=== PATIENT | female | born 1950 | race Caucasian/White ===

== ENCOUNTER 2018-04-19 17:13 | Emergency (ER) | payer MEDICARE, OTHER ==
[~2018-04-19] VITALS: Ht 154.9 cm; Wt 75.0 kg
[2018-04-19] MEDS ORDERED: ASPIRIN 81 MG CHEW TABLET PO ONE (17:45)
[2018-04-19 17:56] LABS: BASO % 0.4 % (0.0-1.0); EOS # 0.1 10^3/uL (0.0-0.50); EOS % 1.2 % (0.0-3.0); HEMATOCRIT 38.8 % (36.0-47.0); HEMOGLOBIN 13.1 g/dl (12.0-15.5); LYMPH # 4.4 10^3/uL (1.5-4.5); LYMPH % 57.2 % (24.0-44.0); MEAN CORPUSCULAR HEMOGLOBIN 28.9 pg (27.0-33.0); MEAN CORPUSCULAR HGB CONC 33.8 g/dl (32.0-36.5); MEAN CORPUSCULAR VOLUME 85.5 fl (80.0-96.0); MONO # 0.4 10^3/uL (0.0-0.8); MONO % 4.5 % (0.0-5.0); NEUTROPHILS # 2.8 10^3/uL (1.8-7.7); NEUTROPHILS % 36.6 % (36.0-66.0); PLATELET COUNT, AUTOMATED 267 10^3/uL (150-450); RED BLOOD COUNT 4.54 10^6/uL (4.00-5.40); WHITE BLOOD COUNT 7.8 10^3/uL (4.0-10.0)
[2018-04-19 18:16] LABS: ALBUMIN 3.9 GM/DL (3.2-5.2); ALT/SGPT 30 U/L (12-78); BILIRUBIN,DIRECT < 0.1 MG/DL (0.0-0.2); BILIRUBIN,TOTAL 0.2 MG/DL (0.2-1.0); BLOOD UREA NITROGEN 15 MG/DL (7-18); CALCIUM LEVEL 8.9 MG/DL (8.8-10.2); CARBON DIOXIDE LEVEL 25 MEQ/L (21-32); CHLORIDE LEVEL 105 MEQ/L (98-107); CPK CREATINE PHOSPHOKINASE 176 U/L (26-192); CREATININE FOR GFR 0.73 MG/DL (0.55-1.30); GLOMERULAR FILTRATION RATE > 60.0 (>45); GLUCOSE, FASTING 146 MG/DL (70-100); LIPASE 252 U/L (73-393); MB/CK RELATIVE INDEX 0.97 (< OR =4); POTASSIUM SERUM 4.1 MEQ/L (3.5-5.1); SODIUM LEVEL 141 MEQ/L (136-145); TOTAL PROTEIN 7.3 GM/DL (6.4-8.2); TROPONIN I < 0.02 NG/ML (< 0.10)
[2018-04-19 20:30] VITALS: BP 159/67
[2018-04-19 20:38] LABS: CPK CREATINE PHOSPHOKINASE 157 U/L (26-192); MB/CK RELATIVE INDEX 0.96 (< OR =4); TROPONIN I < 0.02 NG/ML (< 0.10)
[2018-04-19] MEDS ORDERED: B COTAB3 PO (21:01)
[2018-04-19] MEDS ORDERED: potassium PO (21:01)
[2018-04-19] MEDS ORDERED: VITA500C24 PO (21:01)
[2018-04-19] MEDS ORDERED: MAGN400C2 PO (21:01)
--- NOTE | 2018-04-20 10:31 | REP ---
Portable chest, 05:43 p.m., AP view, the patient upright: Comparison is 09/16/2001. 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 Lung blevins are clear. Cardiac size is normal. The theodora, mediastinum, and skeletal structures are unremarkable. Impression Negative portable chest. No interval change. Electronically Signed by Corey Raygoza MD 04/20/2018 08:49 A
--- NOTE | 2018-04-20 17:46 | ECGEPIP ---
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
--- NOTE | 2018-04-20 17:47 | ECGEPIP ---
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
== END 2018-04-19 21:01 | disposition home or self-care (01) ==
LOC: M ED 17:13
DX: R07.89 Other chest pain (principal); Z79.899 Other long term (current) drug therapy; Z88.5 Allergy status to narcotic agent

== ENCOUNTER 2018-07-22 10:56 | Emergency (ER) | payer MEDICARE, OTHER ==
[~2018-07-22] VITALS: Ht 154.9 cm; Wt 77.3 kg
[~2018-07-22 10:56] MED LIST: B COTAB3 PO; MAGN400C2 PO; VITA500C24 PO; potassium PO
[2018-07-22] MEDS ORDERED: ATOR40TA75 (11:04)
[2018-07-22] MEDS ORDERED: ASPI81TA85 PO (11:04)
[2018-07-22] MEDS ORDERED: HORMONE (11:04)
[2018-07-22] MEDS ORDERED: MORPHINE 4 MG/ML 1ML VIAL/SYRINGE (J2270) IV ONE (12:00)
[2018-07-22] MEDS ORDERED: NS 1,000 ML IV ONE (12:00)
[2018-07-22] MEDS ORDERED: ONDANSETRON 4MG/2ML VIAL (J2405) IV ONE (12:15)
[2018-07-22 12:32] LABS: BASO % 0.2 % (0.0-1.0); EOS % 0.2 % (0.0-3.0); HEMATOCRIT 43.3 % (36.0-47.0); HEMOGLOBIN 14.8 g/dl (12.0-15.5); LYMPH # 2.6 10^3/uL (1.5-4.5); MEAN CORPUSCULAR HEMOGLOBIN 29.6 pg (27.0-33.0); MEAN CORPUSCULAR HGB CONC 34.2 g/dl (32.0-36.5); MEAN CORPUSCULAR VOLUME 86.6 fl (80.0-96.0); MONO # 0.8 10^3/uL (0.0-0.8); MONO % 6.3 % (0.0-5.0); NEUTROPHILS # 8.9 10^3/uL (1.8-7.7); NEUTROPHILS % 71.8 % (36.0-66.0); PLATELET COUNT, AUTOMATED 236 10^3/uL (150-450); WHITE BLOOD COUNT 12.4 10^3/uL (4.0-10.0)
[2018-07-22 12:49] LABS: ALT/SGPT 27 U/L (12-78); BLOOD UREA NITROGEN 9 MG/DL (7-18); CALCIUM LEVEL 9.1 MG/DL (8.8-10.2); CARBON DIOXIDE LEVEL 26 MEQ/L (21-32); CHLORIDE LEVEL 103 MEQ/L (98-107); GLOMERULAR FILTRATION RATE > 60.0 (>45); GLUCOSE, FASTING 113 MG/DL (70-100); SODIUM LEVEL 139 MEQ/L (136-145)
[2018-07-22 12:50] LABS: BILIRUBIN,DIRECT 0.2 MG/DL (0.0-0.2); BILIRUBIN,TOTAL 0.9 MG/DL (0.2-1.0); LIPASE 122 U/L (73-393); TOTAL PROTEIN 7.8 GM/DL (6.4-8.2)
[2018-07-22] MEDS ORDERED: ISOVUE-370 76% 100ML VIAL (Q9967) As Ordered ONE (13:23)
[2018-07-22] MEDS ORDERED: CIPROFLOXACIN 400 MG in APPROPRIATE DILUENT 1 EA IV ONE (14:00)
[2018-07-22] MEDS ORDERED: metroNIDAZOLE (FLAGYL) 500 MG TAB PO ONE (14:00)
--- NOTE | 2018-07-22 14:02 | REP ---
Clinical: Lower abdominal pain and leukocytosis. Technique: Axial contrast enhanced images from the lung bases to the pubic symphysis using 100 ml Isovue 370 intravenous contrast material with coronal and sagittal re-formations. Findings: Mucosal thickening to the midsigmoid colon is appreciated with surrounding inflammatory changes and few central diverticula compatible with acute diverticulitis. No associated bowel obstruction, free air to suggest perforation, significant ascites or drainable collection/abscess. Remainder of the small and large bowel is grossly unremarkable. Diffuse fatty infiltration to the liver noted without focal hepatic lesion. Spleen, pancreas, bilateral adrenal glands and kidneys are normal. Cholelithiasis noted without evidence for acute cholecystitis. Pelvis demonstrates normal bladder and age-appropriate uterus/adnexa. No significant pelvic free fluid. Abdominal aorta without aneurysm or dissection. Musculoskeletal structures without focal osseous abnormality. Lung bases are clear. Impression: 1. Acute sigmoid diverticulitis. No associated bowel perforation, ascites, drainable collection or abscess. 2. Cholelithiasis. Electronically Signed by Joni North MD 07/22/2018 01:53 P
[2018-07-22] MEDS ORDERED: CIPR-249 PO (14:08)
[2018-07-22] MEDS ORDERED: FLAG500T PO (14:08)
[2018-07-22] MEDS ORDERED: NORC1TAB7 PO (14:08)
[2018-07-22 15:33] VITALS: BP 162/71
== END 2018-07-22 15:33 | disposition home or self-care (01) ==
LOC: M ED 10:56
DX: K57.32 Diverticulitis of large intestine without perforation or abscess without bleeding (principal); E78.9 Disorder of lipoprotein metabolism, unspecified; Z79.899 Other long term (current) drug therapy; Z79.82 Long term (current) use of aspirin; Z88.5 Allergy status to narcotic agent
CPT/HCPCS: 74177; 80048; 80076; 81001; 83690; 85025; 96374; 96375; 99284; J0744; J2270; J2405; Q9967

== ENCOUNTER 2018-12-03 12:44 | Day surgery (SDC) | payer MEDICARE, OTHER ==
[~2018-12-03] VITALS: Ht 154.9 cm; Wt 73.9 kg
[~2018-12-03 12:44] MED LIST changes: +ASPI81TA85 PO; +ATOR40TA75; +CIPR-249 PO; +ESTRTAB11 PO; +EVEN500C3 PO; +FLAG500T PO; +GING1CAP PO; +HORMONE; +NORC1TAB7 PO; +NS 1,000 ML IV ONE
[2018-12-03] MEDS ORDERED: LIDOCAINE 2% INJ 100 MG/5 ML SDV (FOR ANES.) As Ordered ONE (13:29)
[2018-12-03] MEDS ORDERED: PROPOFOL 200 MG/20 ML VIAL As Ordered ONE ×2 (13:29→14:21)
--- NOTE | 2018-12-03 14:26 | ROOR ---
Patient Name: Colleen Lockett Procedure Date: 12/03/2018 1:54 PM Date of : 1950 Age: 68 Room: [facility] Gender: Female Note Status: Finalized Procedure: Total Colonoscopy to Cecum + ileoscopy + Cold Snare Polypectomy Indications: Screening for colorectal malignant neoplasm Providers: Siva Toussaint MD Referring MD: Emigdio Westbrook MD Requesting Provider: Medicines: Monitored Anesthesia Care Complications: No immediate complications. Procedure: Pre-Anesthesia Assessment: - The heart rate, respiratory rate, oxygen saturations, blood pressure, adequacy of pulmonary ventilation, and response to care were monitored throughout the procedure. The Colonoscope was introduced through the anus and advanced to the cecum, identified by appendiceal orifice and ileocecal valve. The colonoscopy was performed without difficulty. The patient tolerated the procedure well. The quality of the bowel preparation was excellent. Findings: The perianal and digital rectal examinations were normal. Non-bleeding internal hemorrhoids were found during retroflexion. The hemorrhoids were small and Grade I (internal hemorrhoids that do not prolapse). Multiple small and large-mouthed diverticula were found in the recto-sigmoid colon, sigmoid colon and descending colon. A small polyp was found in the hepatic flexure. The polyp was sessile. The polyp was removed with a cold snare. Resection and retrieval were complete. The exam was otherwise without abnormality on direct and retroflexion views. The terminal ileum appeared normal. Impression: - Non-bleeding internal hemorrhoids. - Diverticulosis in the recto-sigmoid colon, in the sigmoid colon and in the descending colon. - One small polyp at the hepatic flexure, removed with a cold snare. Resected and retrieved. - The examination was otherwise normal on direct and retroflexion views. - The examined portion of the ileum was normal. - The exam was otherwise normal to the cecum. Recommendation: - Patient has a contact number available for emergencies. The signs and symptoms of potential delayed complications were discussed with the patient. Return to normal activities tomorrow. Written discharge instructions were provided to the patient. - High fiber diet. - Discharge patient to home. - Continue present medications. - Await pathology results. - Telephone GI clinic for pathology results in 1 week. - Return to referring physician. - Repeat colonoscopy for surveillance based on pathology results. - Return to referring physician. - The findings and recommendations were discussed with the patient's family. Siva Toussaint MD Siva Toussaint MD 12/03/2018 2:25:34 PM Electronically signed by Siva Toussaint MD Number of Addenda: 0 Note Initiated On: 12/03/2018 1:54 PM Estimated Blood Loss: Estimated blood loss: none.
[2018-12-03 14:40] VITALS: BP 166/77
== END 2018-12-03 14:57 | disposition home or self-care (01) ==
LOC: M OPP 12:44
PROVIDERS: ATTEND Internal Medicine Gastroenterology
DX: Z12.11 Encounter for screening for malignant neoplasm of colon (principal); K64.0 First degree hemorrhoids; K57.30 Diverticulosis of large intestine without perforation or abscess without bleeding; D12.3 Benign neoplasm of transverse colon; K57.32 Diverticulitis of large intestine without perforation or abscess without bleeding; K59.00 Constipation, unspecified; K21.9 Gastro-esophageal reflux disease without esophagitis; Z78.0 Asymptomatic menopausal state; Z88.5 Allergy status to narcotic agent; Z79.82 Long term (current) use of aspirin

== ENCOUNTER → 2018-12-31 | Outpatient (REF) | payer MEDICARE, BC ==
[~2018-12-31] MED LIST changes: -NS 1,000 ML IV ONE
== END ==
LOC: M SFHCPLAZ 17:22
PROVIDERS: ATTEND Dermatology
DX: D49.2 Neoplasm of unspecified behavior of bone, soft tissue, and skin (principal)

== ENCOUNTER → 2019-01-07 | Outpatient (REF) | payer MEDICARE, OTHER | LOC: M LAB REF 08:53 | PROVIDERS: ATTEND Dermatology | DX: L57.0 Actinic keratosis (principal) ==

== ENCOUNTER 2020-11-06 08:22 | Emergency (ER) | payer MEDICARE, OTHER ==
[~2020-11-06] VITALS: Ht 154.9 cm; Wt 78.4 kg
[~2020-11-06 08:22] MED LIST changes: -ASPI81TA85 PO; +ASPI81TA86 PO
[2020-11-06] MEDS ORDERED: ZINC1TAB2 PO (08:29)
[2020-11-06] MEDS ORDERED: ACET-907 PO (08:29)
[2020-11-06] MEDS ORDERED: NAPR-849 PO (08:29)
[2020-11-06] MEDS ORDERED: SERT25TA85 PO (08:29)
[2020-11-06] MEDS ORDERED: LIDOCAINE 5% (LIDODERM) PATCH TD ONE (10:30)
[2020-11-06] MEDS ORDERED: KETOROLAC 60MG 2ML VIAL IM ONE (10:30)
--- NOTE | 2020-11-06 11:47 | REP ---
INDICATION: back pain, no STACIE, recent breast CA dx. COMPARISON: CT 07/22/2018. TECHNIQUE: Axial CT with sagittal and coronal reconstruction images. FINDINGS: There is no compression fracture. No bone lesion is seen. There is mild diffuse spurring. There is mild diffuse disc space narrowing and subchondral sclerosis. Scattered degenerative changes are seen at the posterior facet joints. There is a small hiatal hernia. There are gallstones in the gallbladder. There is a stable, benign 7 mm nodule in the right lower lobe. IMPRESSION: No fracture or suspicious bone lesion. Diffuse degenerative changes. <Electronically signed by Corey Wilcox > 11/06/20 1141
--- NOTE | 2020-11-06 11:48 | REP ---
INDICATION: SOB, recent breast CA dx COMPARISON: 04/19/2018. TECHNIQUE: PA/Lateral FINDINGS: Lungs: Clear, no infiltrate. Heart: Normal in size. Mediastinum: Mediastinal silhouette unremarkable. There is mild elevation of the right hemidiaphragm. Pleural angles: Unremarkable.. Bones and soft tissues: There are mild degenerative changes of the spine. IMPRESSION: No acute pulmonary disease. <Electronically signed by Corey Wilcox > 11/06/20 1140
[2020-11-06 13:57] LABS: BASO % 0.3 % (0.0-1.0); EOS # 0.1 10^3/uL (0.0-0.5); EOS % 1.3 % (0.0-3.0); HEMATOCRIT 42.4 % (36.0-47.0); HEMOGLOBIN 14.2 g/dl (12.0-15.5); LYMPH # 3.1 10^3/uL (1.5-5.0); LYMPH % 49.4 % (24.0-44.0); MEAN CORPUSCULAR HGB CONC 33.5 g/dl (32.0-36.5); MEAN CORPUSCULAR VOLUME 89.5 fl (80.0-96.0); MONO # 0.3 10^3/uL (0.0-0.8); MONO % 5.1 % (2.0-8.0); NEUTROPHILS # 2.8 10^3/uL (1.5-8.5); NEUTROPHILS % 43.6 % (36.0-66.0); PLATELET COUNT, AUTOMATED 285 10^3/uL (150-450); RED BLOOD COUNT 4.74 10^6/uL (4.00-5.40); WHITE BLOOD COUNT 6.3 10^3/uL (4.0-10.0)
[2020-11-06] MEDS ORDERED: cloNIDine 0.1MG TABLET PO ONE (14:00)
[2020-11-06 14:32] LABS: CK-MB VALUE MASS 1.8 NG/ML (<3.6); CPK CREATINE PHOSPHOKINASE 227 U/L (26-192); FREE THYROXINE INDEX 3.1 % (1.3-4.8); MB/CK RELATIVE INDEX 0.79 (< OR =4); T UPTAKE 30 % (30-39); THYROXINE (T4) 10.4 UG/DL (4.5-12.0); TROPONIN I < 0.02 NG/ML (< 0.10)
[2020-11-06 14:48] VITALS: BP 185/84
[2020-11-06] MEDS ORDERED: METH-1165 PO (14:54)
[2020-11-06] MEDS ORDERED: ASPE4PAD TOP (14:54)
--- NOTE | 2020-11-06 20:14 | ECGEPIP ---
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
[2020-11-06] MEDS ORDERED: **NOTE PATIENT COMMENT** MISC XX ONE (22:30)
== END 2020-11-06 15:19 | disposition home or self-care (01) ==
LOC: M ED 08:22
DX: I10 Essential (primary) hypertension (principal); R79.9 Abnormal finding of blood chemistry, unspecified; M54.6 Pain in thoracic spine; C50.919 Malignant neoplasm of unspecified site of unspecified female breast; Z88.5 Allergy status to narcotic agent; Z79.899 Other long term (current) drug therapy; Z79.82 Long term (current) use of aspirin
CPT/HCPCS: 36415; 71046; 72128; 80047; 82550; 82553; 84436; 84443; 84479; 84484; 85025; 93005; 96372; 99284; J1885

== ENCOUNTER → 2021-01-08 | Outpatient (REF) | payer MEDICARE, OTHER ==
[~2021-01-08] MED LIST changes: +ACET-907 PO; +ASPE4PAD TOP; +METH-1165 PO; +NAPR-849 PO; +SERT25TA85 PO; +ZINC1TAB2 PO
== END ==
LOC: M WUC 18:43
PROVIDERS: ATTEND Physician Assistant
DX: R30.0 Dysuria (principal)

== ENCOUNTER → 2021-05-26 | Outpatient (CLI) | payer MEDICARE, OTHER | LOC: M WUC 11:27 | PROVIDERS: ATTEND Family Medicine | DX: M85.88 Other specified disorders of bone density and structure, other site (principal); M51.9 Unspecified thoracic, thoracolumbar and lumbosacral intervertebral disc disorder ==

== ENCOUNTER 2021-09-13 10:21 | Emergency (ER) | payer MEDICARE, OTHER ==
[~2021-09-13] VITALS: Ht 154.9 cm; Wt 70.5 kg
[2021-09-13 11:18] LABS: BASO % 0.4 % (0.0-1.0); EOS # 0.1 10^3/uL (0.0-0.5); EOS % 1.1 % (0.0-3.0); HEMATOCRIT 43.7 % (36.0-47.0); LYMPH # 2.9 10^3/uL (1.5-5.0); LYMPH % 53.4 % (24.0-44.0); MEAN CORPUSCULAR HEMOGLOBIN 30.1 pg (27.0-33.0); MEAN CORPUSCULAR HGB CONC 34.3 g/dl (32.0-36.5); MEAN CORPUSCULAR VOLUME 87.6 fl (80.0-96.0); MONO # 0.3 10^3/uL (0.0-0.8); MONO % 6.3 % (2.0-8.0); NEUTROPHILS # 2.1 10^3/uL (1.5-8.5); NEUTROPHILS % 38.4 % (36.0-66.0); PLATELET COUNT, AUTOMATED 212 10^3/uL (150-450); RED BLOOD COUNT 4.99 10^6/uL (4.00-5.40); WHITE BLOOD COUNT 5.4 10^3/uL (4.0-10.0)
[2021-09-13 11:41] LABS: CK-MB VALUE MASS 2.6 NG/ML (<3.6); MB/CK RELATIVE INDEX 1.38 (< OR =4)
[2021-09-13 12:44] LABS: ALBUMIN 4.1 GM/DL (3.2-5.2); ALT/SGPT 24 U/L (12-78); BILIRUBIN,DIRECT < 0.1 MG/DL (0.0-0.2); BILIRUBIN,TOTAL 0.5 MG/DL (0.2-1.0); BLOOD UREA NITROGEN 12 MG/DL (7-18); CALCIUM LEVEL 9.7 MG/DL (8.8-10.2); CARBON DIOXIDE LEVEL 24 MEQ/L (21-32); CHLORIDE LEVEL 111 MEQ/L (98-107); CREATININE FOR GFR 0.64 MG/DL (0.55-1.30); GLOMERULAR FILTRATION RATE > 60.0 (>39); GLUCOSE, FASTING 104 MG/DL (70-100); LIPASE 129 U/L (73-393); POTASSIUM SERUM 4.1 MEQ/L (3.5-5.1); SODIUM LEVEL 141 MEQ/L (136-145); TOTAL PROTEIN 7.6 GM/DL (6.4-8.2)
[2021-09-13 12:46] LABS: CK-MB VALUE MASS 2.5 NG/ML (<3.6); MB/CK RELATIVE INDEX 1.3 (< OR =4)
[2021-09-13] MEDS ORDERED: ISOVUE-370 76% 100ML VIAL As Ordered ONE (13:34)
[2021-09-13 15:05] LABS: CK-MB VALUE MASS 2.2 NG/ML (<3.6); MB/CK RELATIVE INDEX 1.26 (< OR =4)
[2021-09-13 15:40] VITALS: BP 168/84
== END 2021-09-13 17:10 | disposition home or self-care (01) ==
LOC: M ED 10:21
DX: R07.9 Chest pain, unspecified (principal); R03.0 Elevated blood-pressure reading, without diagnosis of hypertension; R06.02 Shortness of breath; Z88.5 Allergy status to narcotic agent; Z79.899 Other long term (current) drug therapy; Z79.82 Long term (current) use of aspirin
CPT/HCPCS: 36415; 71045; 71275; 80048; 80076; 82550; 82553; 83690; 84484; 85025; 93005; 93041; 94760; 99285; Q9967

== ENCOUNTER 2021-09-29 21:21 | Emergency (ER) | payer MEDICARE ==
[~2021-09-29] VITALS: Ht 154.9 cm; Wt 69.8 kg
[2021-09-29 21:53] LABS: BASO % 0.3 % (0.0-1.0); EOS # 0.1 10^3/uL (0.0-0.5); EOS % 1.5 % (0.0-3.0); HEMATOCRIT 41.2 % (36.0-47.0); LYMPH # 3.4 10^3/uL (1.5-5.0); LYMPH % 55.6 % (24.0-44.0); MEAN CORPUSCULAR HEMOGLOBIN 29.9 pg (27.0-33.0); MEAN CORPUSCULAR VOLUME 87.8 fl (80.0-96.0); MONO # 0.3 10^3/uL (0.0-0.8); MONO % 4.6 % (2.0-8.0); NEUTROPHILS # 2.3 10^3/uL (1.5-8.5); NEUTROPHILS % 37.8 % (36.0-66.0); PLATELET COUNT, AUTOMATED 221 10^3/uL (150-450); RED BLOOD COUNT 4.69 10^6/uL (4.00-5.40); WHITE BLOOD COUNT 6.1 10^3/uL (4.0-10.0)
[2021-09-29] MEDS ORDERED: ISOVUE-370 76% 100ML VIAL As Ordered ONE (22:02)
[2021-09-29 22:05] LABS: INR 0.9; PROTHROMBIN TIME 12.5 SECONDS (12.7-14.5)
[2021-09-29 22:10] LABS: PARTIAL THROMBOPLASTIN TIME 26.8 SECONDS (25.9-37.0)
[2021-09-29 22:25] LABS: CK-MB VALUE MASS 1.4 NG/ML (<3.6); MB/CK RELATIVE INDEX 0.85 (< OR =4)
[2021-09-29 22:33] LABS: ALBUMIN 3.6 GM/DL (3.2-5.2); ALT/SGPT 26 U/L (12-78); BILIRUBIN,DIRECT < 0.1 MG/DL (0.0-0.2); BILIRUBIN,TOTAL 0.2 MG/DL (0.2-1.0); BLOOD UREA NITROGEN 20 MG/DL (7-18); CALCIUM LEVEL 9.1 MG/DL (8.8-10.2); CARBON DIOXIDE LEVEL 24 MEQ/L (21-32); CHLORIDE LEVEL 108 MEQ/L (98-107); CREATININE FOR GFR 0.64 MG/DL (0.55-1.30); FREE T4 0.81 NG/DL (0.76-1.46); GLOMERULAR FILTRATION RATE > 60.0 (>39); GLUCOSE, FASTING 175 MG/DL (70-100); LIPASE 174 U/L (73-393); NT-PRO BNP 17 PG/ML (<125); POTASSIUM SERUM 3.7 MEQ/L (3.5-5.1); SODIUM LEVEL 140 MEQ/L (136-145); TOTAL PROTEIN 7.4 GM/DL (6.4-8.2)
[2021-09-29 23:45] LABS: CK-MB VALUE MASS 1.6 NG/ML (<3.6); MB/CK RELATIVE INDEX 1.03 (< OR =4)
[2021-09-29 23:55] VITALS: BP 180/94
[2021-09-29] MEDS ORDERED: HEPARIN DRIP 25,000 UNITS in IV 1 EA IV SCH (23:55)
[2021-09-29] MEDS ORDERED: HEPARIN SOD (PORCINE) 5000UNITS/ML 1ML VIAL/SYRINGE IV ONE (23:55)
[2021-09-29] MEDS ORDERED: CARVedilol 12.5 MG TAB PO ONE (23:55)
[2021-09-30 00:29] VITALS: BP 196/88
== END 2021-09-30 00:29 | disposition short-term general hospital (02) ==
LOC: EDBD 21:21 → M ED 21:21
DX: I21.4 Non-ST elevation (NSTEMI) myocardial infarction (principal); E78.5 Hyperlipidemia, unspecified; Z85.3 Personal history of malignant neoplasm of breast; Z90.13 Acquired absence of bilateral breasts and nipples; K80.20 Calculus of gallbladder without cholecystitis without obstruction; K44.9 Diaphragmatic hernia without obstruction or gangrene; Z79.82 Long term (current) use of aspirin; Z88.5 Allergy status to narcotic agent
CPT/HCPCS: 71045; 71275; 80048; 80076; 82550; 82553; 83690; 83880; 84439; 84443; 84484; 85025; 85610; 85730; 87486; 87581; 87633; 87798; 93005; 93041; 94760; 96374; 99291; J1644; Q9967

== ENCOUNTER 2024-02-25 11:19 | Inpatient (IN) | payer MEDICARE ==
[~2024-02-25] VITALS: Ht 154.9 cm; Wt 72.0 kg
[~2024-02-25 11:19] MED LIST changes: -EVEN500C3 PO; +EVEN500C7 PO
[2024-02-25] MEDS: ACETAMINOPHEN 500 MG TAB PO ONE (11:55)
[2024-02-25 12:48] LABS: BASO % 0.2 % (0.0-1.0); HEMATOCRIT 33.8 % (36.0-47.0); HEMOGLOBIN 11.9 g/dl (12.0-15.5); LYMPH # 1.6 10^3/uL (1.5-5.0); LYMPH % 18.7 % (24.0-44.0); MEAN CORPUSCULAR HEMOGLOBIN 29.7 pg (27.0-33.0); MEAN CORPUSCULAR HGB CONC 35.2 g/dl (32.0-36.5); MEAN CORPUSCULAR VOLUME 84.3 fl (80.0-96.0); MONO # 0.9 10^3/uL (0.0-0.8); MONO % 10.4 % (2.0-8.0); NEUTROPHILS % 70.1 % (36.0-66.0); PLATELET COUNT, AUTOMATED 170 10^3/uL (150-450); RED BLOOD COUNT 4.01 10^6/uL (4.00-5.40); WHITE BLOOD COUNT 8.5 10^3/uL (4.0-10.0)
[2024-02-25 13:12] LABS: LIPASE 31 U/L (12-53)
[2024-02-25 13:15] LABS: ALBUMIN 3.1 G/DL (3.2-5.2); ALKALINE PHOSPHATASE 75 U/L (35-104); ALT/SGPT 50 U/L (7.0-40); AST/SGOT 79 U/L (<34); BILIRUBIN,DIRECT 0.2 MG/DL (<0.4); BILIRUBIN,TOTAL 0.6 MG/DL (0.3-1.2); BLOOD UREA NITROGEN 17 MG/DL (9-23); CALCIUM LEVEL 8.9 MG/DL (8.3-10.6); CARBON DIOXIDE LEVEL 26 MMOL/L (20-31); CHLORIDE LEVEL 98 MMOL/L (98-107); CREATININE FOR GFR 0.79 MG/DL (0.55-1.30); GLOMERULAR FILTRATION RATE > 60.0 (>39); GLUCOSE, FASTING 120 MG/DL (74-106); POTASSIUM SERUM 3.4 MMOL/L (3.5-5.1); SODIUM LEVEL 133 MMOL/L (136-145); TOTAL PROTEIN 6.7 G/DL (5.7-8.2)
[2024-02-25] MEDS: NS (Normal Saline) 0.9% 1,000 ML IV ONE (15:49)
[2024-02-25] MEDS: GASTROGRAFIN SOLUTION 30ML PO SCH (17:44)
[2024-02-25 17:49] LABS: APPEARANCE, URINE HAZY (CLEAR); BACTERIA, URINE AUTO 3+ (NEGATIVE); BILIRUBIN, URINE AUTO NEGATIVE (NEGATIVE); BLOOD, URINE BLOOD 2+ (NEGATIVE); COLOR, URINE YELLOW (YELLOW); GLUCOSE, URINE (UA) AUTO NEGATIVE (NEGATIVE); KETONE, URINE AUTO 1+ mg/dL (NEGATIVE); LEUKOCYTE ESTERASE, URINE AUTO 2+ (NEGATIVE); NITRITE, URINE AUTO POSITIVE (NEGATIVE); PROTEIN, URINE AUTO 1+ mg/dL (NEGATIVE); RBC, URINE AUTO 5 /HPF (0-3); SPECIFIC GRAVITY URINE AUTO 1.014 (1.002-1.035); SQUAMOUS EPITHELIAL CELL UR AU 1 /HPF (0-6); UROBILINOGEN, URINE AUTO 0.2 mg/dL (0.0-2.0); WBC, URINE AUTO 40 /HPF (0-3)
[2024-02-25] MEDS ORDERED: ISOVUE-370 76% 100ML VIAL As Ordered ONE (18:54)
[2024-02-25] MEDS ORDERED: ROSU10TA61 PO (20:16)
[2024-02-25] MEDS ORDERED: METO1TAB87 PO (20:16)
[2024-02-25] MEDS ORDERED: ASPI81TA26 PO (20:16)
[2024-02-25] MEDS ORDERED: SERT50TA29 PO (20:16)
[2024-02-25] MEDS ORDERED: HOME MED LIST COMPLETE! XX SCH (20:20)
[2024-02-25] MEDS: cefTRIAXone SOD 1 GM in DEXTROSE 5% (D5W) ADV/MINI-BAG 50 ML IV ONE (20:38)
[2024-02-25] MEDS: ACETAMINOPHEN *IV* 1,000 MG in IV 1 EA IV ONE (20:56)
[2024-02-25] MEDS ORDERED: MOM 30ML SUSPENSION UDC PO PRN (21:35)
[2024-02-25] MEDS ORDERED: IBUPROFEN 400MG TAB PO PRN (21:35)
[2024-02-25] MEDS ORDERED: MAALOX 30 ML SUSP *UDC PO PRN (21:35)
[2024-02-25] MEDS ORDERED: ONDANSETRON 4MG 2ML VIAL IV PRN (21:35)
[2024-02-25] MEDS: DOCUSATE SODIUM 100MG CAPSULE PO SCH (21:45)
[2024-02-25] MEDS: METOPROLOL TART 25 MG TABLET PO SCH (22:06)
[2024-02-25] MEDS: NS (Normal Saline) 0.9% 1,000 ML IV SCH (22:06)
[2024-02-25] MEDS: PANTOPRAZOLE 40MG VIAL IV ONE (22:06)
[2024-02-25 22:37] VITALS: BP 128/58; TEMP 99.5; O2SAT 94
[2024-02-26] MEDS ORDERED: POTASSIUM CHLORIDE 10MEQ SR TABLET PO ONE (00:05)
[2024-02-26] MEDS: POTASSIUM CHLORIDE 10MEQ SR TABLET PO ONE (00:11)
[2024-02-26 03:48] VITALS: BP 145/64; TEMP 97.7; O2SAT 94
[2024-02-26] MEDS: ACETAMINOPHEN 325 MG TAB PO PRN (06:13)
[2024-02-26 06:14] VITALS: TEMP 102.8
[2024-02-26 07:17] LABS: HEMATOCRIT 31.9 % (36.0-47.0); HEMOGLOBIN 11.2 g/dl (12.0-15.5); MEAN CORPUSCULAR HEMOGLOBIN 30.4 pg (27.0-33.0); MEAN CORPUSCULAR HGB CONC 35.1 g/dl (32.0-36.5); MEAN CORPUSCULAR VOLUME 86.7 fl (80.0-96.0); PLATELET COUNT, AUTOMATED 174 10^3/uL (150-450); RED BLOOD COUNT 3.68 10^6/uL (4.00-5.40); WHITE BLOOD COUNT 6.8 10^3/uL (4.0-10.0)
[2024-02-26 07:43] LABS: PROCALCITONIN 0.23 ng/ml
[2024-02-26 07:44] LABS: ALBUMIN 2.6 G/DL (3.2-5.2); ALKALINE PHOSPHATASE 70 U/L (35-104); ALT/SGPT 66 U/L (7.0-40); AST/SGOT 95 U/L (<34); BILIRUBIN,TOTAL 0.4 MG/DL (0.3-1.2); BLOOD UREA NITROGEN 13 MG/DL (9-23); CALCIUM LEVEL 8.5 MG/DL (8.3-10.6); CARBON DIOXIDE LEVEL 26 MMOL/L (20-31); CHLORIDE LEVEL 105 MMOL/L (98-107); GLOMERULAR FILTRATION RATE > 60.0 (>39); GLUCOSE, FASTING 131 MG/DL (74-106); POTASSIUM SERUM 3.7 MMOL/L (3.5-5.1); SODIUM LEVEL 141 MMOL/L (136-145)
[2024-02-26] MEDS: ROSUVASTATIN 10 MG TAB (CRESTOR) PO SCH (08:54)
[2024-02-26] MEDS: ASPIRIN 81MG ENTERIC TABLET PO SCH (08:54)
[2024-02-26] MEDS: HEPARIN SOD (PORCINE) 5000UNITS/ML 1ML VIAL/SYRINGE SC SCH ×2 (08:54→15:00)
[2024-02-26] MEDS: SERTRALINE HCL 50 MG TAB PO SCH (08:54)
[2024-02-26] MEDS: NS (Normal Saline) 0.9% 1,000 ML IV SCH (09:03)
[2024-02-26 12:17] VITALS: BP 123/60; TEMP 98.1; O2SAT 94
[2024-02-26] MEDS: cefTRIAXone SOD 1 GM in DEXTROSE 5% (D5W) ADV/MINI-BAG 50 ML IV SCH (20:14)
[2024-02-26 20:32] VITALS: BP 134/72; TEMP 98.6; O2SAT 94
[2024-02-27 00:49] VITALS: BP 118/57; TEMP 97.6; O2SAT 96
[2024-02-27 05:25] VITALS: BP 128/64; TEMP 99.5; O2SAT 96
[2024-02-27 07:20] LABS: BASO % 0.4 % (0.0-1.0); EOS % 0.6 % (0.0-3.0); HEMATOCRIT 33.1 % (36.0-47.0); HEMOGLOBIN 11.2 g/dl (12.0-15.5); LYMPH # 2.1 10^3/uL (1.5-5.0); LYMPH % 31.5 % (24.0-44.0); MEAN CORPUSCULAR HEMOGLOBIN 29.7 pg (27.0-33.0); MEAN CORPUSCULAR HGB CONC 33.8 g/dl (32.0-36.5); MEAN CORPUSCULAR VOLUME 87.8 fl (80.0-96.0); MONO # 0.7 10^3/uL (0.0-0.8); NEUTROPHILS # 3.8 10^3/uL (1.5-8.5); NEUTROPHILS % 56.5 % (36.0-66.0); PLATELET COUNT, AUTOMATED 212 10^3/uL (150-450); RED BLOOD COUNT 3.77 10^6/uL (4.00-5.40); WHITE BLOOD COUNT 6.7 10^3/uL (4.0-10.0)
[2024-02-27 07:49] LABS: ALBUMIN 2.7 G/DL (3.2-5.2); ALKALINE PHOSPHATASE 75 U/L (35-104); ALT/SGPT 76 U/L (7.0-40); AST/SGOT 86 U/L (<34); BILIRUBIN,TOTAL 0.3 MG/DL (0.3-1.2); BLOOD UREA NITROGEN 9 MG/DL (9-23); CALCIUM LEVEL 9.1 MG/DL (8.3-10.6); CARBON DIOXIDE LEVEL 28 MMOL/L (20-31); CHLORIDE LEVEL 108 MMOL/L (98-107); GLOMERULAR FILTRATION RATE > 60.0 (>39); GLUCOSE, FASTING 137 MG/DL (74-106); POTASSIUM SERUM 3.5 MMOL/L (3.5-5.1); SODIUM LEVEL 143 MMOL/L (136-145); TOTAL PROTEIN 6.3 G/DL (5.7-8.2)
[2024-02-27 08:02] LABS: HEPATITIS B SURFACE ANTIGEN NEGATIVE (NEGATIVE)
[2024-02-27 08:23] LABS: HEPATITIS C VIRUS ABY INDEX < 0.02 INDEX (<0.8)
[2024-02-27 08:24] LABS: HEPATITIS B CORE ANTIBODY IGM NEGATIVE (NEGATIVE)
[2024-02-27 09:07] VITALS: BP 133/62
[2024-02-27] MEDS ORDERED: CEFD1CAP9 PO (09:41)
== END 2024-02-27 11:33 | disposition home or self-care (01) | DRG 690 ==
LOC: M ED 11:19 → M ED INP 21:34 → M MS4PR 22:30 → M MS5PR 02-27 00:40
PROVIDERS: ADMIT Student in an Organized Health Care Education/Training Program; ATTEND Internal Medicine
DX: N10 Acute pyelonephritis (principal); E87.1 Hypo-osmolality and hyponatremia; I10 Essential (primary) hypertension; E78.5 Hyperlipidemia, unspecified; I25.10 Atherosclerotic heart disease of native coronary artery without angina pectoris; K21.9 Gastro-esophageal reflux disease without esophagitis; E86.0 Dehydration; R91.8 Other nonspecific abnormal finding of lung field; K80.20 Calculus of gallbladder without cholecystitis without obstruction; K59.00 Constipation, unspecified; R10.13 Epigastric pain; R74.01 Elevation of levels of liver transaminase levels; Z95.5 Presence of coronary angioplasty implant and graft; Z85.3 Personal history of malignant neoplasm of breast; Z90.13 Acquired absence of bilateral breasts and nipples; Z79.82 Long term (current) use of aspirin; Z79.899 Other long term (current) drug therapy; Z88.5 Allergy status to narcotic agent

== ENCOUNTER → 2024-05-04 | Outpatient (CLI) | payer MEDICARE ==
[~2024-05-04] MED LIST changes: +ASPI81TA26 PO; +CEFD1CAP9 PO; +METO1TAB87 PO; +ROSU10TA61 PO; +SERT50TA29 PO
[2024-05-04 15:51] LABS: BLOOD UREA NITROGEN 12 MG/DL (9-23); CALCIUM LEVEL 10.1 MG/DL (8.3-10.6); CARBON DIOXIDE LEVEL 29 MMOL/L (20-31); CHLORIDE LEVEL 102 MMOL/L (98-107); CREATININE FOR GFR 0.53 MG/DL (0.55-1.30); GLOMERULAR FILTRATION RATE > 60.0 (>39); GLUCOSE, FASTING 137 MG/DL (74-106); POTASSIUM SERUM 4.6 MMOL/L (3.5-5.1); SODIUM LEVEL 140 MMOL/L (136-145)
== END ==
LOC: M PLALAB 12:28
PROVIDERS: ATTEND Family Medicine
DX: R91.8 Other nonspecific abnormal finding of lung field (principal)

== ENCOUNTER → 2024-05-05 | Outpatient (CLI) | payer MEDICARE ==
[~2024-05-05] MED LIST changes: +ISOVUE-370 76% 100ML VIAL ONE
== END ==
LOC: M PLAIMG 11:00
PROVIDERS: ATTEND Family Medicine
DX: R91.8 Other nonspecific abnormal finding of lung field (principal); I25.10 Atherosclerotic heart disease of native coronary artery without angina pectoris; I70.0 Atherosclerosis of aorta; K44.9 Diaphragmatic hernia without obstruction or gangrene; K80.20 Calculus of gallbladder without cholecystitis without obstruction
CPT/HCPCS: 71260; Q9967